=== PATIENT | male | born 1980 | race African-American/Black ===

== ENCOUNTER 2018-04-05 21:34 | Emergency (ER) | payer OTHER, SELFPAY ==
[2018-04-05] MEDS ORDERED: Ondansetron PF 4 MG/2 ML Vial ONE (22:16)
[2018-04-05 22:35] LABS: #Basophils 0.1 thou/uL (0.0-0.2); #Lymphocytes 0.8 thou/uL (1.20-3.40); #Monocytes 0.3 thou/uL (0.11-0.59); #Neutrophils 3.1 thou/uL (1.40-6.50); %Basophils 2.3 % (0.0-1.0); %Eosinophils 0.2 % (0.0-10.0); %Lymphocytes 18.3 % (21.0-51.0); %Monocytes 7.1 % (0.0-10.0); %Neutrophils 72.1 % (42.0-75.0); Hemoglobin 14.5 g/dL (14.0-18.0); Mean Corpuscular HGB CONC 32.7 g/dL (32.0-36.0); Mean Corpuscular Volume 91.9 fL (78.0-98.0); Mean Platelet Volume 7.5 fL (7.4-10.4); Platelet Count 340 thou/uL (130-400); RBC Distribution Width 12.3 % (11.5-14.5); Red Blood Cell (RBC) Count 4.82 mill/uL (4.70-6.10); White Blood Cell (WBC) Count 4.2 thou/uL (4.8-10.8)
[2018-04-05] MEDS ORDERED: Dicyclomine 20 MG TAB ONE (22:44)
[2018-04-05 22:55] LABS: ALT (SGPT) 21 U/L (8-55); AST (SGOT) 18 U/L (5-34); Albumin 4.1 g/dL (3.5-5.0); Alkaline Phosphatase 145 U/L (40-150); Anion Gap 13 mmol/L (10-20); BUN (Urea Nitrogen) 12 mg/dL (8.9-20.6); Bilirubin, Total 0.9 mg/dL (0.2-1.2); Calc. Creatinine Clearance 0 mL/min (70-130); Calcium 9.5 mg/dL (7.8-10.44); Carbon Dioxide 24 mmol/L (22-29); Chloride 106 mmol/L (98-107); Estimated GFR-MDRD Greater than 90; Glucose 100 mg/dL (70-105); Potassium 3.3 mmol/L (3.5-5.1); Protein, Total 7.1 g/dL (6.0-8.3); Sodium 140 mmol/L (136-145)
== END 2018-04-05 23:25 | disposition home or self-care (01) ==
LOC: ERS 21:34
DX: R11.2 Nausea with vomiting, unspecified (principal); R19.7 Diarrhea, unspecified
CPT/HCPCS: 80053; 85025; 96361; 96374; J2405

== ENCOUNTER 2019-03-10 10:43 | Emergency (ER) | payer SELFPAY ==
--- NOTE | 2019-03-10 12:06 | RAD ---
Exam: XR Finger(s) Lt Min 2 View HISTORY: Trauma to left ring finger. COMPARISON: None FINDINGS: There is dislocation at the level of the proximal interphalangeal joint of the left ring finger. The middle phalanx is dislocated medially with respect to the proximal phalanx. There is suggestion of slight osseous irregularity involving the radial aspect base of the proximal phalanx. There is no displaced fracture identified. IMPRESSION: Dislocation at the proximal interphalangeal joint left ring finger.
--- NOTE | 2019-03-10 12:49 | RAD ---
LEFT RING FINGER TWO VIEWS: HISTORY: Post reduction. COMPARISON: Study done on 03/10/2019 at 1138 hours. FINDINGS: There has been interval reduction in the previously noted dislocation at the proximal interphalangeal joint, left ring finger. There is no evidence of a dislocation seen on this exam. No fracture or oth er osseous abnormality is seen. IMPRESSION: Interval reduction in a previously noted dislocation at the proximal interphalangeal joint, left ring finger. No fracture or dislocation s seen on this examination. POS: [facility]
== END 2019-03-10 12:43 | disposition home or self-care (01) ==
LOC: ERS 10:43
DX: S63.285A Dislocation of proximal interphalangeal joint of left ring finger, initial encounter (principal); F14.10 Cocaine abuse, uncomplicated; X58.XXXA Exposure to other specified factors, initial encounter
CPT/HCPCS: 26770; 93005

== ENCOUNTER 2022-07-20 21:09 | Emergency (ER) | payer SELFPAY ==
[2022-07-20 23:29] LABS: #Basophils 0.1 thou/uL (0.0-0.2); #Eosinphils 0.2 thou/uL (0.0-0.7); #Monocytes 0.6 thou/uL (0.11-0.59); %Basophils 0.7 % (0.0-1.0); %Eosinophils 3.3 % (0.0-10.0); %Lymphocytes 32.5 % (21.0-51.0); %Monocytes 8.2 % (0.0-10.0); %Neutrophils 54.9 % (42.0-75.0); Hemoglobin 14.1 g/dL (14.0-18.0); Mean Corpuscular HGB CONC 32.9 g/dL (32.0-36.0); Mean Corpuscular Hemoglobin 29.5 pg (27.0-31.0); Mean Corpuscular Volume 89.7 fl (78.0-98.0); Mean Platelet Volume 9.3 fL (7.4-10.4); Platelet Count 315 10x3/uL (130-400); RBC Distribution Width 13.4 % (11.5-14.5); Red Blood Cell (RBC) Count 4.78 mill/uL (4.70-6.10); White Blood Cell (WBC) Count 7.2 10x3/uL (4.8-10.8)
[2022-07-20 23:57] LABS: ALT (SGPT) 23 U/L (8-55); AST (SGOT) 21 U/L (5-34); Albumin 4.2 g/dL (3.5-5.0); Alkaline Phosphatase 161 U/L (40-110); Anion Gap 12 mmol/L (10-20); BUN (Urea Nitrogen) 14 mg/dL (8.9-20.6); Bilirubin, Total 0.6 mg/dL (0.2-1.2); Calc. Creatinine Clearance 0 mL/min (70-130); Calcium 9.6 mg/dL (7.8-10.44); Carbon Dioxide 26 mmol/L (22-29); Chloride 107 mmol/L (98-107); Estimated GFR 64; Globulin 3.1 g/dL (2.4-3.5); Glucose 106 mg/dL (70-105); Potassium 4.1 mmol/L (3.5-5.1); Protein, Total 7.3 g/dL (6.0-8.3); Sodium 141 mmol/L (136-145)
== END 2022-07-21 02:15 | disposition home or self-care (01) ==
LOC: ERS 21:09
DX: L03.115 Cellulitis of right lower limb (principal)
CPT/HCPCS: 36415; 80053; 85025